=== PATIENT | female | born 1945 | race Caucasian/White ===

== ENCOUNTER 2016-08-29 12:30 | Outpatient (CLI) | payer MEDICARE, OTHER ==
[~2016-08-29] VITALS: Ht 157.5 cm; Wt 68.1 kg
[2016-08-29] MEDS ORDERED: OMEP20CA12 PO (12:47)
[2016-08-29] MEDS ORDERED: GLUC-115 PO (12:47)
[2016-08-29] MEDS ORDERED: FISH1CAP15 PO (12:47)
[2016-08-29] MEDS ORDERED: MULT-35 PO (12:47)
[2016-08-29] MEDS ORDERED: CHOL200025 PO (12:47)
[2016-08-29] MEDS ORDERED: TERBIN250T PO (12:47)
[2016-08-29] MEDS ORDERED: CALC-901 PO (12:47)
[2016-08-29 12:50] VITALS: BP 158/64
== END 2016-08-29 13:09 | disposition home or self-care (01) ==
LOC: PREOP 12:30
PROVIDERS: ATTEND Podiatrist Foot & Ankle Surgery
DX: Z01.818 Encounter for other preprocedural examination (principal); Z11.2 Encounter for screening for other bacterial diseases; M20.12 Hallux valgus (acquired), left foot; M89.372 Hypertrophy of bone, left ankle and foot
CPT/HCPCS: 87081

== ENCOUNTER 2016-09-03 06:00 | Day surgery (SDC) | payer MEDICARE, OTHER ==
[~2016-09-03] VITALS: Ht 157.5 cm; Wt 68.1 kg
[~2016-09-03 06:00] MED LIST: CALC-901 PO; CHOL200025 PO; FISH1CAP15 PO; GLUC-115 PO; MULT-35 PO; OMEP20CA12 PO; TERBIN250T PO
--- OUTSIDE RECORDS SUMMARY | 2016-09-03 06:12 | XMS REPORT | Continuity of Care Document ---
Author Author [facility] Organization [facility] Address Unknown Phone Unavailable Care Team Providers Care Signal System Testing Maintainer Name Role Phone YESSICA JAMES DO PCP Insurance Providers Payer Name Policy Number Subscriber Name Relationship W[employer] [id number] Mirta Guaman 18 Self / Same As Patient Enter Insurance Name [id number] Mirta Guaman 18 Self / Same As Patient Advance Directives Directive Response Recorded Date/Time Advance Directives Yes 08/29/16 12:41pm Health Care Power of Aircraft Cabin Cleaner Yes 08/29/16 12:41pm Resuscitation Status Full Code 08/29/16 12:41pm Problems No problem information available. Medications Current Home Medications Medication Dose Units Route Directions Days/Qty Instructions Start Date Omeprazole 20 Mg 20 Mg Oral Daily 08/29/16 Terbinafine 250 Mg 250 Mg Oral Daily 08/29/16 Cholecalciferol (Vitamin D3) 2,000 Unit 2,000 Unit Oral Daily Multivitamin 1 Each 1 Each Oral Daily 08/29/16 Calcium Carbonate/Vitamin D3 1 Each 1 Each Oral Twice A Day 08/29/16 Fish Oil/Dha/Epa 1 Each 1 Each Oral Twice A Day 08/29/16 Gluc Vieyra Dipo Ch/Gurjit Vieyra/C/Srinivas 1 Each 1 Each Oral Twice A Day Social History Social History Problem Response Recorded Date/Time Alcohol Use Occasionally Uses 08/29/2016 12:41pm Recreational Drug Use No 08/29/2016 12:41pm Recent Foreign Travel No 08/29/2016 12:33pm Recent Infectious Disease Exposure No 08/29/2016 12:33pm Sexually Transmitted Disease No 08/29/2016 12:41pm HIV/AIDS No 08/29/2016 12:41pm Smoking Status Never a Smoker 08/29/2016 12:41pm Recent Hopitalizations No 08/29/2016 12:41pm Sexually Transmitted Disease No 08/29/2016 12:41pm Query Response Start Date Stop Date Smoking Status Never a Smoker Hospital Discharge Instructions No hospital discharge instructions. Plan of Care Discharge Date 08/29/16 1:09pm Prescriptions See Medication Section Functional Status No functional status results. Allergies, Adverse Reactions, Alerts Allergen Type Severity Reaction Status Last Updated Oxycodone Allergy Intermediate GI UPSET Active 08/29/16 Acetaminophen Allergy Intermediate GI UPSET Active 08/29/16 Immunizations No immunization records. Vital Signs Acute Vital Signs Vital Response Date/Time Pulse Rate (adult) 59 bpm (60 - 90) 08/29/2016 12:50pm Respiratory Rate 16 bpm (12 - 24) 08/29/2016 12:50pm O2 Sat by Pulse Oximetry 99 % (88 - 100) 08/29/2016 12:50pm Blood Pressure 158/64 mm Hg 08/29/2016 12:50pm Blood Pressure Mean 95 mm Hg 08/29/2016 12:50pm Pain Numeric Pain Scale 0-No Pain 08/29/2016 12:50pm Height (Feet) 5 feet 08/29/2016 12:33pm Height (Inches) 2.00 inches 08/29/2016 12:33pm Height (Calculated Centimeters) 157.755167 cm 08/29/2016 12:33pm Weight (Pounds) 150 pounds 08/29/2016 12:33pm Weight (Ounces) 3.0 oz 08/29/2016 12:33pm Weight (Calculated Grams) 35170.91 gm 08/29/2016 12:33pm Weight (Calculated Kilograms) 68.741242 kilograms 08/29/2016 12:33pm Calculated BMI 27.5 08/29/2016 12:33pm Results No known relevant diagnostic tests, laboratory data and/or discharge summary. Procedures No known history of procedures. Encounters Encounter Location Arrival/Admit Date Discharge/Depart Date Attending Provider Departed Clinic [facility] 08/29/16 12:30pm 08/29/16 1: 09pm FINN GARDUNOM
--- OUTSIDE RECORDS SUMMARY | 2016-09-03 06:12 | XMS REPORT | Continuity of Care Document ---
Author Author [facility] Organization [facility] Address Unknown Phone Unavailable Care Team Providers Care Pants Presser Automatic Name Role Phone YESSICA JAMES DO PCP Insurance Providers Payer Name Policy Number Subscriber Name Relationship W[employer] [id number] Mirta Guaman 18 Self / Same As Patient Enter Insurance Name [id number] Mirta Guaman 18 Self / Same As Patient Advance Directives Directive Response Recorded Date/Time Advance Directives Yes 08/29/16 12:41pm Health Care Power of Apprentice Cook Yes 08/29/16 12:41pm Resuscitation Status Full Code [...] 2.00 inches 08/29/2016 12:33pm Height (Calculated Centimeters) 157.165937 cm 08/29/2016 12:33pm Weight (Pounds) 150 pounds 08/29/2016 12:33pm Weight (Ounces) 3.0 oz 08/29/2016 12:33pm Weight (Calculated Grams) 10067.91 gm 08/29/2016 12:33pm Weight (Calculated Kilograms) 68.551551 kilograms 08/29/2016 12:33pm Calculated BMI 27.5 08/29/2016 12:33pm Results No known relevant diagnostic tests, laboratory data and/or discharge summary. Procedures No known history of procedures. Encounters Encounter Location Arrival/Admit Date Discharge/Depart Date Attending Provider Departed Clinic [facility] 08/29/16 12:30pm 08/29/16 1: 09pm FINN GARDUNOM
[2016-09-03] MEDS ORDERED: ceFAZolin 1,000 MG (ANCEF) VIAL ONE (06:23)
[2016-09-03] MEDS ORDERED: NS (IVPB) 50 ML ONE (06:23)
[2016-09-03] MEDS ORDERED: ONDANSETRON 4 MG/2 ML (SDV) Z0FRAN ONE ×2 (06:53→07:02)
[2016-09-03] MEDS ORDERED: FAMOTIDINE 20MG/2ML IV (PEPCID) ONE (06:53)
[2016-09-03] MEDS ORDERED: CATHETER FLUSH 10 ML SYR IV PRN (07:00)
[2016-09-03] MEDS ORDERED: ceFAZolin 1 GM/NS 50 ML IVPB IV ONE ×2 (07:00)
[2016-09-03] MEDS ORDERED: DEXAMETHASONE PF 10 MG/ML (DECADRON) VIAL ONE ×2 (07:02→07:11)
[2016-09-03] MEDS ORDERED: LIDOCAINE PF 2% 10 ML (XYLOCAINE) AMP ONE (07:03)
[2016-09-03] MEDS ORDERED: proPOfol 200 MG/20 ML (DIPRIVAN) VIAL IV ONE (07:03)
[2016-09-03] MEDS ORDERED: fentaNYL INJECTION 100 MCG/2 ML AMP ONE (07:03)
[2016-09-03] MEDS ORDERED: SEVOFLURANE (ULTANE) 15 ML INHAL SOLN ONE (07:03)
[2016-09-03] MEDS ORDERED: LACTATED RINGERS 1,000 ML IV ONE (07:03)
[2016-09-03] MEDS ORDERED: MIDAZOLAM 2 MG/2 ML (VERSED) VIAL ONE (07:03)
[2016-09-03] MEDS ORDERED: LACTATED RINGERS 1,000 ML IV PRN (07:08)
[2016-09-03] MEDS ORDERED: BUPIVACAINE 0.5% 30 ML (SENSORCAINE) VIAL ONE (07:11)
[2016-09-03] MEDS ORDERED: LIDOCAINE 1% INJ 20 ML (XYLOCAINE) VIAL ONE (07:11)
[2016-09-03] MEDS ORDERED: FAMOTIDINE 20MG/2ML IV (PEPCID) IV ONE (07:15)
[2016-09-03] MEDS ORDERED: ONDANSETRON 4 MG/2 ML (SDV) Z0FRAN IV ONE (07:15)
[2016-09-03 07:42] VITALS: BP 149/67
== END 2016-09-03 08:20 | disposition home or self-care (01) ==
LOC: SDC 06:00
PROVIDERS: ATTEND Podiatrist Foot & Ankle Surgery
DX: M20.12 Hallux valgus (acquired), left foot (principal); M89.372 Hypertrophy of bone, left ankle and foot; Z53.8 Procedure and treatment not carried out for other reasons

== ENCOUNTER 2016-09-07 10:23 | Day surgery (SDC) | payer MEDICARE, OTHER ==
[~2016-09-07] VITALS: Ht 157.5 cm; Wt 68.1 kg
--- OUTSIDE RECORDS SUMMARY | 2016-09-07 10:26 | XMS REPORT | Continuity of Care Document ---
Author Author [facility] Organization [facility] Address Unknown Phone Unavailable Care Team Providers Care Production Administrative Assistant Name Role Phone YESSICA JAMES DO PCP Insurance Providers Payer Name Policy Number Subscriber Name Relationship W[employer] [id number] Mirta Guaman 18 Self / Same As Patient Enter Insurance Name [id number] Mirta Guaman 18 Self / Same As Patient Advance Directives Directive Response Recorded Date/Time Advance Directives Yes 08/29/16 12:41pm Health Care Power of Network Design Architect Yes 08/29/16 12:41pm Resuscitation Status Full Code [...] 2.00 inches 08/29/2016 12:33pm Height (Calculated Centimeters) 157.129029 cm 08/29/2016 12:33pm Weight (Pounds) 150 pounds 08/29/2016 12:33pm Weight (Ounces) 3.0 oz 08/29/2016 12:33pm Weight (Calculated Grams) 49805.91 gm 08/29/2016 12:33pm Weight (Calculated Kilograms) 68.258553 kilograms 08/29/2016 12:33pm Calculated BMI 27.5 08/29/2016 12:33pm Results No known relevant diagnostic tests, laboratory data and/or discharge summary. Procedures No known history of procedures. Encounters Encounter Location Arrival/Admit Date Discharge/Depart Date Attending Provider Departed Clinic [facility] 08/29/16 12:30pm 08/29/16 1: 09pm FINN GARDUNOM
--- OUTSIDE RECORDS SUMMARY | 2016-09-07 10:26 | XMS REPORT | Continuity of Care Document ---
Author Author [facility] Organization [facility] Address Unknown Phone Unavailable Care Team Providers Care Youth Career Specialist Name Role Phone YESSICA JAMES DO PCP Insurance Providers Payer Name Policy Number Subscriber Name Relationship W[employer] [id number] Mirta Guamna 18 Self / Same As Patient Enter Insurance Name [id number] Mirta Guaman 18 Self / Same As Patient Advance Directives Directive Response Recorded Date/Time Advance Directives Yes 08/29/16 12:41pm Health Care Power of Educational/Development Assistant Yes 08/29/16 12:41pm Resuscitation Status Full Code [...] 2.00 inches 08/29/2016 12:33pm Height (Calculated Centimeters) 157.669272 cm 08/29/2016 12:33pm Weight (Pounds) 150 pounds 08/29/2016 12:33pm Weight (Ounces) 3.0 oz 08/29/2016 12:33pm Weight (Calculated Grams) 00911.91 gm 08/29/2016 12:33pm Weight (Calculated Kilograms) 68.189543 kilograms 08/29/2016 12:33pm Calculated BMI 27.5 08/29/2016 12:33pm Results No known relevant diagnostic tests, laboratory data and/or discharge summary. Procedures No known history of procedures. Encounters Encounter Location Arrival/Admit Date Discharge/Depart Date Attending Provider Departed Clinic [facility] 08/29/16 12:30pm 08/29/16 1: 09pm FINN GARDUNOM
[2016-09-07] MEDS ORDERED: ONDANSETRON 4 MG/2 ML (SDV) Z0FRAN ONE ×2 (10:46→11:09)
[2016-09-07] MEDS ORDERED: LIDOCAINE PF 2% 10 ML (XYLOCAINE) AMP ONE (10:46)
[2016-09-07] MEDS ORDERED: fentaNYL INJECTION 100 MCG/2 ML AMP ONE ×2 (10:46→12:26)
[2016-09-07] MEDS ORDERED: LACTATED RINGERS 1,000 ML IV ONE ×2 (10:46→12:19)
[2016-09-07] MEDS ORDERED: MIDAZOLAM 2 MG/2 ML (VERSED) VIAL ONE (10:46)
[2016-09-07] MEDS ORDERED: proPOfol 200 MG/20 ML (DIPRIVAN) VIAL IV ONE (10:46)
[2016-09-07] MEDS ORDERED: SEVOFLURANE (ULTANE) 15 ML INHAL SOLN ONE ×3 (10:51→13:16)
[2016-09-07] MEDS ORDERED: BUPIVACAINE 0.5% 30 ML (SENSORCAINE) VIAL ONE (11:06)
[2016-09-07] MEDS ORDERED: LIDOCAINE 1% INJ 20 ML (XYLOCAINE) VIAL ONE (11:06)
[2016-09-07] MEDS ORDERED: DEXAMETHASONE PF 10 MG/ML (DECADRON) VIAL ONE (11:06)
[2016-09-07] MEDS ORDERED: ceFAZolin 1,000 MG (ANCEF) VIAL ONE (11:08)
[2016-09-07] MEDS ORDERED: NS (IVPB) 50 ML ONE (11:08)
[2016-09-07] MEDS ORDERED: FAMOTIDINE 20MG/2ML IV (PEPCID) ONE (11:09)
[2016-09-07] MEDS: LACTATED RINGERS 1,000 ML IV PRN ×2 (11:21→12:45)
[2016-09-07 11:30] VITALS: BP 121/76
[2016-09-07] MEDS ORDERED: FAMOTIDINE 20MG/2ML IV (PEPCID) IV ONE ×2 (11:30→12:00)
[2016-09-07] MEDS ORDERED: ONDANSETRON 4 MG/2 ML (SDV) Z0FRAN IV ONE ×2 (11:30→12:00)
[2016-09-07] MEDS ORDERED: ceFAZolin 1 GM/NS 50 ML IVPB IV ONE ×2 (11:30)
[2016-09-07] MEDS ORDERED: LACTATED RINGERS 1,000 ML IV PRN (11:48)
--- NOTE | 2016-09-07 11:48 | Progress Note-Pre Operative ---
Pre-Operative Progress Note H&P Reviewed The H&P was reviewed, patient examined and no changes noted. Date H&P Reviewed: Sep 07, 2016 Time H&P Reviewed: 11:46 Pre-Operative Diagnosis: Hallux Valgus left, Hypertrophic 2nd metatararsal left FINN GARDUNO DPM Sep 07, 2016 11:48 am
[2016-09-07] MEDS ORDERED: LACTATED RINGERS 1,000 ML IV SCH (13:26)
--- NOTE | 2016-09-07 13:26 | Progress Note-Post Operative ---
Post-Operative Progess Note Pre-Operative Diagnosis Hallux Valgus left, Hypertrophic 2nd metatararsal left Post-Operative Diagnosis Same Post-Op Procedure Note Date of Procedure: Sep 07, 2016 Name of Procedure: Arthur Bunionectomy left 2nd Metatarsal osteotomy left Anesthesia Type General Estimated blood loss (mL): FINN Garcia DPM Sep 07, 2016 1:26 pm
[2016-09-07] MEDS ORDERED: fentaNYL INJECTION 100 MCG/2 ML AMP IVP PRN (13:30)
[2016-09-07] MEDS ORDERED: MEPERIDINE (DEMEROL) INJ 50 MG/ML IVP PRN (13:30)
[2016-09-07] MEDS ORDERED: ONDANSETRON 4 MG/2 ML (SDV) Z0FRAN IVP PRN ×2 (13:30)
[2016-09-07] MEDS ORDERED: HYDROcodone/APAP 5 MG/325 MG (LORTAB) TAB PO PRN (13:30)
[2016-09-07] MEDS ORDERED: HYDR-3812 PO (13:36)
[2016-09-07] MEDS ORDERED: CEPH500C PO (13:36)
[2016-09-07 14:20] VITALS: BP 147/71
[2016-09-07 14:50] VITALS: BP 141/67
[2016-09-07 15:20] VITALS: BP 159/69
[2016-09-07] MEDS ORDERED: HYDROcodone/APAP 5 MG/325 MG (LORTAB) TAB ONE (15:28)
--- NOTE | 2016-09-07 15:33 | Physical Therapy Ortho Eval ---
PT Orthopedic Evaluation Type of Surgery left hallux Prior Level of Function Current Living Status: Spouse Locomotion (Upon Admit): Independent Established Durable Medical Eq: Electric Scooter, Front Wheeled Walker Subjective Subjective Patient in bed pre tx, agrees to PT, states she does not have any pain but her left foot feels "weird" Entry Into Home: Ramp Steps Accessories: Ramped Entrance Other Obstacles: Patient states she has either one step or a ramp she can use Motor Control Motor Control: Motor Control WNL ROM ROM: WFL, except focal deficit Strength NT Transfer Transfers (B, C, W/C) (FIM): 5 Gait Gait Assistive Device: FWW NWB left lower extremity, patient was compliant with her weight bearing status, she ambulated 50' with a rolling walker with SBA, no LOB or unsteadiness, patient did not want to try a step at this time and was glad she had a ramp at home she could use Weight Bearing Restriction: Non Weight Bearing Location Restriction: L LE Gait (FIM): 2 Distance: 50' Gait Level of Assist: 5 Treatment Rendered Treatment: Therapeutic Exercises, Gait Train, Reviewed Precautions, Use of Ice Exercise Instruction: Heel Slides, Ankle Pumps LAQ Assessment/Goals Goal Time Frame: 1 Visit Plan Treatment Plan: Discharge PT/Family Agrees to Plan: Yes Time Time In: 1510 Time Out: 1525 Total Billed Treatment Time: 15 Billed Treatment Time 1 visit EVL 15 min OTILIA NEGRON PT Sep 07, 2016 15:33
--- NOTE | 2016-09-07 17:40 | Diagnostic Imaging Report ---
INDICATION: Postop left foot surgery. TECHNIQUE: Two portable postoperative views left foot 1:45 p.m. CORRELATION STUDY: None FINDINGS: There are postoperative changes of an osteotomy about the distal first and second metatarsals. At the first metatarsal, there is slight lateral displacement of the metatarsal head in relation to the residual shaft. Single fixation pin present. A single screw noted over the distal second metatarsal. Alignment appearing to be near anatomic. Soft tissue gas collections present. Remaining osseous structures unremarkable. IMPRESSION: 1. Postop osteotomy changes of the first metatarsal. Additional hardware over the second metatarsal head, age-indeterminate. Dictated by: Dictated on workstation # [id number]
--- NOTE | 2016-09-09 23:36 | OPERATIVE REPORT ---
PROCEDURE PHYSICIAN: FINN GARDUNO DATE OF PROCEDURE: 09/07/2016 SURGEON: Finn Garduno DPM. PREOPERATIVE DIAGNOSES: 1. Hallux abductovalgus, metatarsal primus varus, left. 2. Hypertrophic second metatarsal, left. POSTOPERATIVE DIAGNOSES: 1. Hallux abductovalgus, metatarsal primus varus, left. 2. Hypertrophic second metatarsal, left. PROCEDURE: 1. Modified Arthur bunionectomy, left with K wire fixation. 2. Second metatarsal osteotomy, left with snap off screw fixation. WOUND CLASS: Clean. ANESTHESIA: General. HEMOSTASIS: Pneumatic thigh tourniquet at 300 mmHg. INDICATION: This 71-year-old female presents complaining of a painful bunion to the left foot. Conservative therapy is met with unsatisfactory results and the patient is agreeable to surgical intervention after risks and complications were discussed at length. No guarantees were extended to the patient and she is willing to proceed. PROCEDURE: The patient was brought back to operating table, placed in a secure, supine position. Appropriate timeout was performed. General anesthetic was induced. Pneumatic thigh tourniquet was placed on the left lower extremity over several layers of padding. The left foot was then and prepped and draped in normal sterile manner. The left leg was then elevated and allowed to exsanguinate after which the tourniquet was inflated to 300 mmHg. Attention was then directed to the dorsal aspect left first metatarsophalangeal joint where a 5 cm longitudinal linear incision was created. The incision was deepened in the same plane with great care to identify and retract all vital neurovascular structures. The incision was deepened down to the capsular tissue where a longitudinal capsulotomy was performed. The capsular tissue was reflected mediolaterally, exposing the hypertrophic medial eminence to the first metatarsal head, which was resected utilizing the power sagittal saw. Next, blunt dissection was carried out to the first intermetatarsal space where a lateral release was performed. The conjoined tendon of the adductor hallucis was released as well as a release of the fibular sesamoidal ligament and the lateral capsulorrhaphy was performed as well. The hallux was then forcibly abducted releasing any additional fibers holding it in its abnormal position. Attention was redirected to the medial aspect of the first metatarsal head where a Chevron type osteotomy was performed with great care to preserve the sesamoidal apparatus. The capital fragment was then translocated laterally and fixated in its corrected position with a 0.062 threaded K wire driven from dorsal proximal to plantar distal across the osteotomy with great care not to penetrate the articular cartilage. The K wire was cut flush with the dorsal aspect of the first metatarsal. The head was further contoured and smoothed with a power sagittal saw and power bur and hand rasp. Excellent range of motion the reduction of the bunion deformity was appreciated at this time with simulated weight-bearing status of a left foot. Rectus alignment was appreciated to the left hallux and there is smooth with full range of motion to the left first metatarsophalangeal joint. The wound was then flushed with copious amounts of normal saline and closure was then performed in layers. Deep closure was performed with 3-0 Vicryl, superficial with 4-0 Vicryl, skin closure with 4-0 Prolene in a horizontal mattress type stitch. Attention was then directed to the dorsal aspect left second metatarsophalangeal joint where a 2 cm longitudinal linear incision was created. The incision was deepened down to the extensor tendons where a longitudinal capsulotomy was performed just medial to the extensor tendons of the second ray. The mediolateral and collateral ligaments were released and the hypertrophic head of the second metatarsal tarsal was identified. Next, utilizing a power sagittal saw, a Roselia type osteotomy was performed. The capital fragment was translocated proximally and fixated in its corrected position with a 3.0 snap off screw of 12 mm of length. Excellent bony apposition and fixation was appreciated at this time. The head of the second metatarsal was further contoured and smoothed with a rongeur and hand rasp. Excellent range of motion of the left second metatarsophalangeal joint was appreciated without any crepitation. The wound was flushed once again and after which closure was performed in layers. Deep closure was performed with 4-0 Vicryl, superficial with 4-0 Vicryl, and skin closure with 4-0 Prolene in a horizontal mattress type stitch. Postoperative injection consisted of 20 mL of 0.5% Marcaine plain, injected in a local infusion to the surgical sites followed by 10 mg of dexamethasone into the left first intermetatarsal space. Postoperative dressing consisted of Betadine soaked Adaptic, sterile 4 x 4, sterile Kerlix, all secured with a Coban wrap. The patient tolerated the anesthesia and procedure well and was transported from the operating room to the recovery area with vital signs stable and vascular status intact to all digits of the left foot. She is to follow-up in my office in 1 week period of time or sooner if necessary. She was given a prescription for Vicodin and Keflex. The last time she had Percocet, she took it on an empty stomach and had an episode of nausea and vomiting; therefore, I feel it is appropriate to go ahead and utilized hydrocodone as long as she takes it on a full stomach. Job ID: [id number] Dictated Date: 09/07/2016 13:35:54 Certified Registered Nurse Practitioner Date: 09/09/2016 23:22:38 / wilfredo
--- NOTE | 2016-09-18 08:12 | HISTORY AND PHYSICAL ---
DICTATING PHYSICIAN: Dr. Rose CHIEF COMPLAINT: To have left foot surgery for bunion by Dr. Crane to be done this Saturday. ALLERGIC TO MEDICATIONS: Maybe PERCOCET MEDICATIONS NOW ON: 1. Prilosec 20 mg. 2. Tobenofate. 3. Vitamin B3. 4. Multivitamin. 5. Fish oil. 6. Glucosamine. 7. Calcium. SURGERIES: 1. Complete hysterectomy. 2. Bladder lift 3. Two cataracts. FAMILY HISTORY: Heart disease father. Mother COL lymphoma, COPD denies lung disease. REVIEW OF SYSTEMS: HEAD: Denies headache, dizziness, fainting. EYES, EARS, NOSE AND THROAT: A little, tinnitus, denies diplopia, sore throat. RESPIRATORY: Denies asthma, TB, coughing, congestion, smoking or wheezing. HEART: No history of heart problems, heart murmurs or chest pain. GASTROINTESTINAL: Appetite good. Denies blood in stools, diarrhea, constipation, ulcer, vomiting. GENITOURINARY: Denies blood, pain, frequency. PHYSICAL EXAMINATION: The patient is a white female, well-nourished, well-developed, in no acute respiratory distress at rest. Pulse 60, blood pressure 140/80, weight 150. EARS: Not inflamed. EYES: No conjunctivitis noted. THROAT: Not inflamed. NECK: Thyroid not enlarged. No abnormal cervical lymphadenopathy noted. No carotid bruits. HEART: Regular rate and rhythm. LUNGS: Clear to auscultation. ABDOMEN: Soft. Liver and spleen nonpalpable. EXTREMITIES: No pretibial edema. Good dorsalis pedis pulses. PLAN: The patient okay for surgery Dictated Date: 08/29/2016 11:20:52 Dopster Date: 08/29/2016 12:41:24/kjs <Dictated by AMANDA ROSE DO> 08/29/16 1120 <Electronically signed by AMANDA ROSE DO> 08/30/16 0767
== END 2016-09-07 16:00 | disposition home or self-care (01) ==
LOC: SDC 10:23
PROVIDERS: ATTEND Podiatrist Foot & Ankle Surgery
DX: M20.12 Hallux valgus (acquired), left foot (principal); M89.372 Hypertrophy of bone, left ankle and foot
CPT/HCPCS: 73620